=== PATIENT | female | born 1985 | race Caucasian/White ===

== ENCOUNTER 2019-07-08 15:07 | Outpatient (CLI) | payer OTHER | END 2019-07-08 23:59 | disposition home or self-care (01) | LOC: CVU 15:07 | PROVIDERS: ATTEND Internal Medicine Cardiovascular Disease | DX: R06.02 Shortness of breath (principal); R94.31 Abnormal electrocardiogram [ECG] [EKG] | CPT/HCPCS: 93306 ==

== ENCOUNTER → 2020-09-30 | Outpatient (CLI) | payer OTHER ==
[~2020-09-30] MED LIST: CHOL10003 PO; DICY10CA3 PO
== END | disposition home or self-care (01) ==
LOC: STAR 13:12
PROVIDERS: ATTEND Surgery
DX: Z01.818 Encounter for other preprocedural examination (principal); I45.2 Bifascicular block; I51.7 Cardiomegaly; Z20.828 Contact with and (suspected) exposure to other viral communicable diseases
CPT/HCPCS: 36415; 87635; 93005

== ENCOUNTER 2020-10-16 11:34 | Emergency (ER) | payer OTHER ==
[~2020-10-16] VITALS: Ht 160 cm; Wt 47.5 kg
[~2020-10-16 11:34] MED LIST changes: +HYDR-3240 PO
[2020-10-16] MEDS ORDERED: MAGNESIUM CITRATE 300ML ORAL SOL ONE (15:58)
[2020-10-16] MEDS ORDERED: MAGNESIUM CITRATE 300ML ORAL SOL PO ONE (16:00)
[2020-10-16 17:01] VITALS: BP 128/94
== END 2020-10-16 17:03 | disposition home or self-care (01) ==
LOC: ED 16:41
DX: K59.00 Constipation, unspecified (principal); R10.84 Generalized abdominal pain; Z85.3 Personal history of malignant neoplasm of breast; Z90.10 Acquired absence of unspecified breast and nipple
CPT/HCPCS: 74021; 99284

== ENCOUNTER → 2020-11-25 | Outpatient (CLI) | payer OTHER | END | disposition home or self-care (01) | LOC: ROC 07:55 | PROVIDERS: ATTEND Radiology Radiation Oncology | DX: C50.911 Malignant neoplasm of unspecified site of right female breast (principal); R10.84 Generalized abdominal pain; K59.00 Constipation, unspecified; F32.9 Major depressive disorder, single episode, unspecified; M19.90 Unspecified osteoarthritis, unspecified site; Z90.710 Acquired absence of both cervix and uterus; Z79.899 Other long term (current) drug therapy | CPT/HCPCS: 99214; G0463 ==

== ENCOUNTER 2021-02-25 08:20 | Outpatient (CLI) | payer OTHER ==
[~2021-02-25 08:20] MED LIST changes: +HYDR-1067 PO; -HYDR-3240 PO
== END 2021-02-25 23:59 | disposition home or self-care (01) ==
LOC: ROC 08:20
PROVIDERS: ATTEND Radiology Radiation Oncology
DX: Z08 Encounter for follow-up examination after completed treatment for malignant neoplasm (principal); Z85.3 Personal history of malignant neoplasm of breast; F32.9 Major depressive disorder, single episode, unspecified; M19.90 Unspecified osteoarthritis, unspecified site; R10.84 Generalized abdominal pain; Z79.899 Other long term (current) drug therapy
CPT/HCPCS: 99212; G0463

== ENCOUNTER → 2021-05-06 | Outpatient (CLI) | payer OTHER ==
[~2021-05-06] MED LIST changes: -HYDR-1067 PO; +HYDR-2214 PO
== END | disposition home or self-care (01) ==
LOC: ROC 09:11
PROVIDERS: ATTEND Radiology Radiation Oncology
DX: Z08 Encounter for follow-up examination after completed treatment for malignant neoplasm (principal); Z85.3 Personal history of malignant neoplasm of breast
CPT/HCPCS: 99212; G0463